=== PATIENT | male | born 1955 | race Caucasian/White ===

== ENCOUNTER 2019-06-11 06:17 | Day surgery (SDC) | payer MEDICARE, OTHER ==
[2019-06-11] MEDS ORDERED: Lactated Ringers 1,000 ML IV SCH (06:30)
[2019-06-11] MEDS ORDERED: VASOTEC I.V. 2.5 MG IV SCH (07:00)
[2019-06-11] MEDS ORDERED: DIPRIVAN 200 MG/20 ML IV ONE ×2 (07:56→08:19)
[2019-06-11 09:31] VITALS: BP 143/92; PULSE 62; O2SAT 96
--- NOTE | 2019-06-11 10:06 | OP ---
SURGERY DATE/TIME: 06/11/2019 0800 PREOPERATIVE DIAGNOSIS: History of colon polyps. POSTOPERATIVE DIAGNOSIS: Small polyp in the transverse colon and second small polyp in the rectosigmoid colon. PROCEDURE: Colonoscopy with cold forceps biopsy. SURGEON: Dr. Pemberton. ANESTHESIA: MAC. Medications given by anesthesia department. HISTORY: The patient is a 64 year-old white male patient now presenting for colonoscopic evaluation. He reports he had one previously over ten years ago at which time he did have colon polyps. The patient was appraised of the risks of the procedure including the risk of perforation, phlebitis, untoward reaction to medication, bleeding and missed lesions. The patient verbalized his understanding and desired to have the procedure performed. DESCRIPTION OF PROCEDURE: The patient was given the medications by the anesthesia department. He had continuous pulse oximetry, ECG monitoring, intermittent blood pressure monitoring and tidal CO2 monitoring during the examination. He was placed in the left lateral decubitus position. A digital rectal examination was performed and revealed normal anal sphincter tone, no masses and a normal prostate. The flexible Olympus pediatric colonoscope was used to intubate the rectum. A view of the colon was developed sequentially to the cecum. Upon insertion and withdrawal, including a retroflex view in the rectum was noted a small polyp in the mid transverse colon this was destroyed using passes with cold forceps biopsy completely destroying the lesion. There was also noted to be a smaller polyp yet in the rectosigmoid area this was biopsied also using cold forceps. No other mucosal lesions being encountered, the scope was removed from the patient who tolerated the procedure well and was sent back to OP recovery in good condition. The prep was noted to be fair to good.
== END 2019-06-11 09:15 | disposition home or self-care (01) ==
LOC: SDC 06:17
PROVIDERS: ATTEND Family Medicine
DX: D12.3 Benign neoplasm of transverse colon (principal); K63.5 Polyp of colon; Z86.010 Personal history of colon polyps
CPT/HCPCS: 88305; J2704